=== PATIENT | male | born 1985 | race African-American/Black ===

== ENCOUNTER 2020-06-28 13:07 | Emergency (ER) | payer OTHER ==
[~2020-06-28] VITALS: Ht 180.3 cm; Wt 68.9 kg
--- NOTE | 2020-06-28 16:04 | NUR ---
BIBS TO ER BED 12. AAOX4. NOT IN RESP DISTRESS. AMBULATORY. CAME IN FOR RECTAL PAIN AND NO BM X 1 WEEK. PAIN IS 6/10. DENIES AND BLEEDING. PT IS ALSO NOTED WITH A L LOWER LEG SWELLING WHICH HE REPORT A CHRONIC DVT. PT REPORTS BEING ON AND OFF ON HIS BLOOD THINNER. WAS AT THE BEDSIDE FOR EVAL. ORDERS RECEIVED, NOTED AND CARRIED OUT.
--- NOTE | 2020-06-28 16:08 | NUR ---
BLOOD DRANW BY PHLEB. US AT BEDSIDE
[2020-06-28 16:14] LABS: BASOPHILS % (AUTO) 0.5 % (0.0-2.0); EOSINOPHILS % (AUTO) 8.7 % (0.0-6.0); HEMATOCRIT 40 % (39-51); HEMOGLOBIN 13.4 g/dL (13.5-17.5); LYMPHOCYTES # (AUTO) 2.5 /CMM (0.8-4.8); LYMPHOCYTES % (AUTO) 47.1 % (20.0-44.0); MEAN CORPUSCULAR HGB CONC 33 g/dl (31.0-36.0); MEAN CORPUSCULAR VOLUME 88 fL (80-96); MONOCYTES # (AUTO) 0.9 /CMM (0.1-1.30); MONOCYTES % (AUTO) 16.5 % (2.0-12.0); NEUTROPHILS # (AUTO) 1.4 /CMM (1.8-8.9); NEUTROPHILS % (AUTO) 27.2 % (43.0-81.0); PLATELET COUNT (AUTO) 226 /CMM (150-450); RED BLOOD CELL COUNT(AUTO) 4.58 MIL/uL (4.5-6.0); WHITE BLOOD COUNT (AUTO) 5.2 K/uL (4.3-11.0)
[2020-06-28 16:31] LABS: ALBUMIN 3.3 g/dL (3.4-5.0); BILIRUBIN,DIRECT 0.1 mg/dL (0.0-0.2); BILIRUBIN,TOTAL 0.4 mg/dL (0.2-1.0); CALCIUM, SERUM 8.7 mg/dL (8.5-10.1); POTASSIUM 4.2 mmol/L (3.5-5.1); TOTAL PROTEIN, SERUM 6.2 g/dL (6.4-8.2)
--- NOTE | 2020-06-28 16:59 | NUR ---
Patient does not wish to proceed with medical care recommended by Munir Gil. Patient given information related to possible complications, up to and including , which could occur as a result of leaving the hospital at this time. Patient verbalizes understanding of risks involved due to leaving against medical advice. Patient has signed AMA form. Pt walked out of the ER verbalizing "i ain't signing any shit". Witnessed by KOSTAS Zimmerman
[2020-06-28 17:01] VITALS: BP 125/72
[2020-06-28 17:32] LABS: EOSINOPHILS % (MANUAL) 11 % (0-4); LYMPHOCYTES % (MANUAL) 40 % (16-48); MONOCYTES % (MANUAL) 7 % (0-11.0); NEUTROPHILS % (MANUAL) 42 (42-76)
== END 2020-06-28 17:08 | disposition left against medical advice (07) ==
LOC: ER 13:09
DX: K62.89 Other specified diseases of anus and rectum (principal); K59.00 Constipation, unspecified; R22.43 Localized swelling, mass and lump, lower limb, bilateral; M79.605 Pain in left leg; M79.604 Pain in right leg; Z86.718 Personal history of other venous thrombosis and embolism; Z98.890 Other specified postprocedural states
CPT/HCPCS: 74018; 80048-TC; 80076-TC; 83690-TC; 85025-TC; 85730-TC; 93970-TC